=== PATIENT | male | born 1950 | race Two or more races ===

== ENCOUNTER 2016-10-25 23:29 | Inpatient (IN) | payer OTHER ==
[~2016-10-25] VITALS: Ht 172.7 cm; Wt 86.2 kg
[~2016-10-25 23:29] MED LIST: ATENOLOL PO; HYDROCHLOROTHIAZIDE PO; SIMV10TA6 PO
[2016-10-25] MEDS ORDERED: CIPR-262 PO (23:39)
[2016-10-25] MEDS ORDERED: TAMS-3 PO (23:45)
[2016-10-26] MEDS ORDERED: GENTAMICIN SULFATE INJ 80 MG in IV DEXTROSE 5% 100 ML IV ONE ×2
[2016-10-26] MEDS ORDERED: IV NORMAL SALINE 1000 ML BAG IV ONE
[2016-10-26] MEDS ORDERED: CEFTRIAXONE 1 G in IV DEXTROSE 5% 50 ML IV ONE ×2
[2016-10-26 00:22] LABS: BASOPHILS % (AUTO) 0.4 % (0.0-2.0); EOSINOPHILS % (AUTO) 0.1 % (0.0-7.0); HEMATOCRIT 39.1 % (40-50); HEMOGLOBIN 13.3 G/DL (14.0-18.0); LYMPHOCYTES # (AUTO) 0.7 K/UL (0.8-4.8); LYMPHOCYTES % (AUTO) 6.6 % (20.5-51.5); MEAN CORPUSCULAR HGB CONC 34 g/dL (32.0-37.0); MEAN CORPUSCULAR VOLUME 82.3 FL (82.0-92.0); MONOCYTES # (AUTO) 0.5 K/UL (0.1-1.30); MONOCYTES % (AUTO) 4.8 % (0.0-11.0); NEUTROPHILS # (AUTO) 8.9 K/UL (1.8-8.9); NEUTROPHILS % (AUTO) 88.1 % (38.5-71.5); PLATELET COUNT (AUTO) 157 K/UL (150-450); RED BLOOD CELL COUNT(AUTO) 4.75 MIL/UL (4.7-6.1); WHITE BLOOD COUNT (AUTO) 10.1 K/UL (4.0-11.2)
[2016-10-26] MEDS ORDERED: CEFTRIAXONE 1 G VIAL ONE (00:31)
[2016-10-26 00:40] LABS: BILIRUBIN,DIRECT 0.2 mg/dL (0.0-0.2); BILIRUBIN,TOTAL 0.7 mg/dL (0.2-1.0); CREATININE 1.3 mg/dL (0.6-1.3); TOTAL PROTEIN, SERUM 7.8 g/dL (6.4-8.2)
[2016-10-26 00:41] LABS: POTASSIUM 2.5 mmol/L (3.5-5.1)
[2016-10-26] MEDS ORDERED: POTASSIUM CHLORIDE 20 MEQ TAB.PRT.SR PO ONE (00:45)
[2016-10-26] MEDS ORDERED: GENTAMICIN SULFATE 80 MG/2 ML VIAL ONE (00:52)
[2016-10-26] MEDS ORDERED: POTASSIUM CHLORIDE 20 MEQ TAB.PRT.SR ONE (00:59)
[2016-10-26 01:04] LABS: *BILIRUBIN,URIN NEGATIVE (NEGATIVE); *BLOOD, URINE 2+ (NEGATIVE); *CLARITY,URINE CLEAR (CLEAR); *COLOR,URINE YELLOW (YELLOW); *KETONES,URINE NEGATIVE (NEGATIVE); *PROTEIN,URINE TRACE (NEGATIVE); *UROBILINOGEN,URINE 0.2 E.U./dl (NORMAL); LEUKOCYTE ESTERASE ,URINE 1+ (NEGATIVE); NITRITE, URINE NEGATIVE (NEGATIVE); UGLUCOSE NEGATIVE (NEGATIVE)
[2016-10-26 01:12] LABS: BACTERIA,URINE NONE SEEN /HPF (NONE SEEN); SQUAMOUS EPITHELIAL CELL,UR FEW /HPF (NONE SEEN)
--- NOTE | 2016-10-26 01:37 | NUR ---
DR. DYE AT BEDSIDE FOR MSE.
--- NOTE | 2016-10-26 01:47 | NUR ---
Call placed to [facility], Astrid Maki will be paged.
--- NOTE | 2016-10-26 02:25 | NUR ---
PATIENT ADMITTED IN TELE UNIT UNDER THE CARE Jimmie CARRASCO BELONGING LIST DONE. FAMILY AT BEDSIDE.
[2016-10-26 02:49] VITALS: BP 130/79
[2016-10-26] MEDS: ACETAMINOPHEN 325 MG TABLET PO PRN ×4 (03:00→21:53)
--- NOTE | 2016-10-26 03:00 | NUR ---
PATIENT RUN TEMP, COOLING MEASURE GIVEN, GIVEN TYLENOL, ASSISTED WITH TOILETING, FAMILY AT BEDSIDE. NO SOB NO CHEST PAIN NOTED, RYTHM SINUS RYTHM, CONT TO MONITOR.
[2016-10-26] MEDS ORDERED: ACETAMINOPHEN 325 MG TABLET ONE (03:29)
[2016-10-26] MEDS ORDERED: ONDANSETRON 4 MG/2 ML VIAL ONE (03:30)
[2016-10-26] MEDS ORDERED: VANCOMYCIN IV 200 ML ONE (03:43)
[2016-10-26 04:00] VITALS: BP 111/58
[2016-10-26] MEDS: VANCOMYCIN IV 1 G in PREMIXED 0 EACH IV SCH ×2 (04:00→06:00)
[2016-10-26] MEDS ORDERED: IV NS 1000 ML 1,000 ML IV PRN (06:00)
[2016-10-26] MEDS ORDERED: ONDANSETRON 4 MG/2 ML VIAL IV PRN (06:00)
[2016-10-26] MEDS ORDERED: LORAZEPAM 2 MG/1 ML VIAL IV PRN (06:00)
[2016-10-26] MEDS ORDERED: CEFTRIAXONE 1 G in IV DEXTROSE 5% 50 ML IV SCH ×2 (06:00→21:00)
--- NOTE | 2016-10-26 06:36 | NUR ---
PATIENT SLEPT FOR FEW HOURS, NO SOB NO CHEST PAIN, VANCO AND ROCEPHIN IV NOT GIVEN TOO CLOSE FROM PREVIOUS ADMINISTRATION, ROCEPHIN GIVEN AT ER, PATIENT HAS NO FURTHER EPISODE OF N/V NOTED AT THIS TIME, VOIDING WITH NAHUM COLOR URINE, IN MODERATE AMOUNT PATIENT STILL RUN TEMP. GIVEN ICE PACK FOR COOLING MEASURE BUT REFUSED TO USE IT, AWARE, CONT TO MONITOR.
--- NOTE | 2016-10-26 07:10 | NUR ---
PATIENT RECEIVED IN ROOM RESTING IN BED IN NO ACUTE DISTRESS. SR ON TELEMONITOR. RESPIRATIONS EVEN AND UNLABORED. IVF RUNNING NS AT 80 ML/HR. IV SITE INTACT AND PATENT. CALL LIGHT AT REACH.
--- NOTE | 2016-10-26 09:30 | NUR ---
BED BAD GIVEN. COOLING MEASURES PROVIDED.
[2016-10-26] MEDS ORDERED: PIPERACILLIN/TAZOBACTAM/D5W 50 ML IV SCH (10:15)
--- NOTE | 2016-10-26 10:30 | NUR ---
PATIENT SEEN BY DR BERMAN. DETAILED REPORT GIVEN.
[2016-10-26] MEDS: PANTOPRAZOLE SODIUM 40 MG TABLET.DR PO SCH (10:56)
[2016-10-26] MEDS: POTASSIUM CHLORIDE 20 MEQ in IV NS 1000 ML 1,000 ML IV PRN (10:56)
[2016-10-26] MEDS ORDERED: IOHEXOL 300MG/ML 100 ML INFUS..BTL ONE (10:57)
[2016-10-26] MEDS ORDERED: BARIUM SULFATE 450 ML ORAL.SUSP ONE (10:57)
[2016-10-26 11:01] LABS: BASOPHILS % (AUTO) 0.1 % (0.0-2.0); EOSINOPHILS % (AUTO) 0.6 % (0.0-7.0); HEMATOCRIT 35.3 % (40-50); HEMOGLOBIN 12.4 G/DL (14.0-18.0); LYMPHOCYTES # (AUTO) 0.4 K/UL (0.8-4.8); LYMPHOCYTES % (AUTO) 7.7 % (20.5-51.5); MEAN CORPUSCULAR HEMOGLOBIN 28.4 UUG (27.0-31.0); MEAN CORPUSCULAR HGB CONC 35 g/dL (32.0-37.0); MONOCYTES # (AUTO) 0.3 K/UL (0.1-1.30); MONOCYTES % (AUTO) 5.4 % (0.0-11.0); NEUTROPHILS # (AUTO) 5.1 K/UL (1.8-8.9); NEUTROPHILS % (AUTO) 86.2 % (38.5-71.5); PLATELET COUNT (AUTO) 145 K/UL (150-450); RED BLOOD CELL COUNT(AUTO) 4.35 MIL/UL (4.7-6.1); WHITE BLOOD COUNT (AUTO) 5.8 K/UL (4.0-11.2)
[2016-10-26 11:03] LABS: CREATININE 1.1 mg/dL (0.6-1.3); POTASSIUM 2.9 mmol/L (3.5-5.1)
[2016-10-26 11:09] LABS: BILIRUBIN,TOTAL 0.4 mg/dL (0.2-1.0); MAGNESIUM 1.6 mg/dL (1.8-2.4); PHOSPHOROUS 1.8 mg/dL (2.5-4.9); TOTAL PROTEIN, SERUM 6.9 g/dL (6.4-8.2)
--- NOTE | 2016-10-26 11:23 | NUR ---
Clinical pharmacy note-Vancomycin dosing per pharmacy Subjective: To start Vancomycin dosing on this 66 year old male patient for sepsis(no MD note yet) Objective: BUN 8 Scr 1.1 WBC 10.1 Temp 102.8 Ht 5'8" Wt 190lbs Assessment/Plan: Patient had Vancomycin 1 gram today at 0400. Will continue Vancomycin dosing as 1250mg IVPB every 15 hrs(first dose today at 1600, 12hrs post 1 gram dose) and draw trough by 4th dose(not ordered yet) for expected trough around 15. Will monitor renal function to adjust the dose if needed. Will follow daily.
[2016-10-26] MEDS ORDERED: ATEN25TA PO (11:27)
[2016-10-26] MEDS ORDERED: HYDR50TA3 PO (11:28)
[2016-10-26 11:42] VITALS: BP 121/57
--- NOTE | 2016-10-26 13:40 | NUR ---
PATIENT RETURNED FROM CT SCAN.
[2016-10-26] MEDS: MORPHINE SULFATE 2 MG/1 ML DISP.SYRIN IV PRN (13:49)
[2016-10-26] MEDS ORDERED: NEUTRA PHOS PACKET PO ONE (15:15)
[2016-10-26] MEDS ORDERED: MAGNESIUM SULFATE/D5W 100 ML IV SCH (15:30)
[2016-10-26 15:49] VITALS: BP 104/58
[2016-10-26] MEDS: VANCOMYCIN IV 1,250 MG in IV DEXTROSE 5% 500 ML IV SCH (16:32)
--- NOTE | 2016-10-26 18:35 | NUR ---
PATIENT SEEN BY ID. DETAILED REPORT GIVEN. TEMP 100.4. CONTINUES WITH COOLING MEASURES. IVF AND IV ANTIBIOTICS PRESCRIBED.
[2016-10-26 20:00] VITALS: BP 114/55
[2016-10-26] MEDS: PIPERACILLIN/TAZOBACTAM/D5W 50 ML IV SCH (20:37)
[2016-10-26] MEDS: SIMVASTATIN 10 MG TABLET PO SCH (20:38)
[2016-10-26] MEDS: TAMSULOSIN HCL 0.4 MG CAP.SR.24H PO SCH (20:38)
--- NOTE | 2016-10-26 20:48 | NUR ---
PATIENT HAS MULTIPLE EPISODES OF LOOSE BOWEL MOVEMENT, DR WHARTON NOTIFIED WITH ORDER.
[2016-10-26] MEDS: OXYCODONE/APAP 5-325 MG TABLET PO PRN (23:17)
[2016-10-26 23:49] VITALS: BP 107/56
[2016-10-27] MEDS: PIPERACILLIN/TAZOBACTAM/D5W 50 ML IV SCH ×4 (02:38→20:13)
[2016-10-27 04:00] VITALS: BP 103/55
[2016-10-27] MEDS: POTASSIUM CHLORIDE 20 MEQ in IV NS 1000 ML 1,000 ML IV PRN (05:40)
[2016-10-27] MEDS: PANTOPRAZOLE SODIUM 40 MG TABLET.DR PO SCH (06:05)
[2016-10-27] MEDS: VANCOMYCIN IV 1,250 MG in IV DEXTROSE 5% 500 ML IV SCH ×2 (06:33→21:16)
[2016-10-27 08:33] LABS: THYROID STIMULATING HORMONE 1.124 mIU/mL (0.358-3.740)
[2016-10-27 08:43] LABS: BASOPHILS % (AUTO) 0.3 % (0.0-2.0); EOSINOPHILS % (AUTO) 0.3 % (0.0-7.0); HEMATOCRIT 35.4 % (40-50); HEMOGLOBIN 12.2 G/DL (14.0-18.0); LYMPHOCYTES # (AUTO) 0.5 K/UL (0.8-4.8); LYMPHOCYTES % (AUTO) 12.2 % (20.5-51.5); MEAN CORPUSCULAR HEMOGLOBIN 28.4 UUG (27.0-31.0); MEAN CORPUSCULAR HGB CONC 35 g/dL (32.0-37.0); MEAN CORPUSCULAR VOLUME 82.3 FL (82.0-92.0); MONOCYTES # (AUTO) 0.4 K/UL (0.1-1.30); MONOCYTES % (AUTO) 9.3 % (0.0-11.0); NEUTROPHILS # (AUTO) 3.4 K/UL (1.8-8.9); NEUTROPHILS % (AUTO) 77.9 % (38.5-71.5); PLATELET COUNT (AUTO) 122 K/UL (150-450)
[2016-10-27 08:45] LABS: BILIRUBIN,TOTAL 0.5 mg/dL (0.2-1.0); CREATININE 1.2 mg/dL (0.6-1.3); MAGNESIUM 1.9 mg/dL (1.8-2.4); PHOSPHOROUS 2.4 mg/dL (2.5-4.9); POTASSIUM 3.3 mmol/L (3.5-5.1); TOTAL PROTEIN, SERUM 6.8 g/dL (6.4-8.2)
[2016-10-27 09:06] LABS: WHITE BLOOD COUNT (AUTO) 4.3 K/UL (4.0-11.2)
--- NOTE | 2016-10-27 12:00 | NUR ---
TEMP 102.7 BLOOD CX X2 ORDERED.
[2016-10-27 12:02] VITALS: BP 146/71
[2016-10-27] MEDS: ACETAMINOPHEN 325 MG TABLET PO PRN ×2 (12:08→20:12)
[2016-10-27 13:34] LABS: *BILIRUBIN,URIN NEGATIVE (NEGATIVE); *BLOOD, URINE 2+ (NEGATIVE); *CLARITY,URINE CLOUDY (CLEAR); *COLOR,URINE YELLOW (YELLOW); *KETONES,URINE NEGATIVE (NEGATIVE); *PROTEIN,URINE 1+ (NEGATIVE); *UROBILINOGEN,URINE 0.2 E.U./dl (NORMAL); LEUKOCYTE ESTERASE ,URINE NEGATIVE (NEGATIVE); NITRITE, URINE NEGATIVE (NEGATIVE); PH,URINE 5.5 (5.0-8.0); UGLUCOSE NEGATIVE (NEGATIVE)
[2016-10-27 13:49] LABS: BACTERIA,URINE NONE SEEN /HPF (NONE SEEN); SQUAMOUS EPITHELIAL CELL,UR FEW /HPF (NONE SEEN); URINE AMORPHOUS URATE FEW /HPF; WBC,URINE 0-3 /HPF (0-3)
[2016-10-27] MEDS ORDERED: NEUTRA PHOS PACKET PO ONE (15:30)
[2016-10-27 15:41] VITALS: BP 115/56
--- NOTE | 2016-10-27 16:09 | NUR ---
Clinical pharmacy note-Vancomycin dosing per pharmacy Subjective: To continue Vancomycin dosing on this 66 year old male patient for sepsis(no MD note yet) Objective: BUN 6 Scr 1.2 WBC 4.3 Temp 102.7 Ht 5'8" Wt 190lbs Assessment/Plan: Will continue Vancomycin dosing as 1250mg IVPB every 15 hrs and draw trough by 4th dose(ordered and due tomorrow 10/28 @1230) for expected trough around 15. Third dose due tonight at 2200. Will check trough tomorrow and adjust as needed. Will monitor renal function and dose per level if were to become unstable. Will follow daily.
--- NOTE | 2016-10-27 18:45 | NUR ---
END OF SHIFT NOTE: PATIENT IN NO ACUTE DISTRESS THROUGHOUT SHIFT. DENIED PAIN. VSS. TEMP NOW 98.8. BRP. NEEDS MET BY STAFF. CALL LIGHT AT REACH.
--- NOTE | 2016-10-27 19:30 | NUR ---
RECEIVED PATIENT LAYING COMFORTABLY IN BED. FAMILY AT BEDSIDE. NO ACUTE DISTRESS NOTED. NO C/O PAIN OR SOB. ON 2L NC. A&OX4. TELE SR. SAFETY INITIATED. CALL LIGHT WITHIN REACH. INSTRUCTED PATIENT TO USE THE CALL LIGHT WHEN IN NEED OF ASSISTANCE. VERBALIZED UNDERSTANDING. WILL CONTINUE TO MONITOR.
[2016-10-27 19:46] VITALS: BP 125/59
[2016-10-27] MEDS: TAMSULOSIN HCL 0.4 MG CAP.SR.24H PO SCH (20:12)
[2016-10-27] MEDS: SIMVASTATIN 10 MG TABLET PO SCH (20:12)
[2016-10-28 00:51] VITALS: BP 132/71
--- NOTE | 2016-10-28 02:00 | NUR ---
PATIENT C/O OF NEW ONSET HEADACHES 10/21 AND STUFFY NOSE. ADDED HUMIDIFIER. DID NOT IMPROVE STUFFY NOSE. GAVE PERCOCET. VSS. WILL CONTINUE TO MONITOR.
[2016-10-28] MEDS: OXYCODONE/APAP 5-325 MG TABLET PO PRN (02:10)
[2016-10-28] MEDS: PIPERACILLIN/TAZOBACTAM/D5W 50 ML IV SCH ×4 (02:11→20:36)
--- NOTE | 2016-10-28 02:18 | NUR ---
PATIENT C/O HEADACHE THAT IS KEEPING HIM UP. 0000 VSS. TELE SR AT 70. GAVE MEDS. WILL CONTINUE TO MONITOR.
--- NOTE | 2016-10-28 02:30 | NUR ---
HEADACHE AND STUFFY NOSE DID NOT IMPROVE. GAVE MORPHINE 2 MG IVP. VSS. WILL CONTINUE TO MONITOR.
[2016-10-28] MEDS: MORPHINE SULFATE 2 MG/1 ML DISP.SYRIN IV PRN (03:32)
--- NOTE | 2016-10-28 03:33 | NUR ---
PATIENT STATED SLIGHT RELIEF AFTER THE MORPHINE. VSS. WILL CONTINUE TO MONITOR.
[2016-10-28 04:00] VITALS: BP 126/67
[2016-10-28] MEDS: PANTOPRAZOLE SODIUM 40 MG TABLET.DR PO SCH (06:18)
--- NOTE | 2016-10-28 06:23 | NUR ---
REFUSED AM MEDS. REFUSED IV FLUIDS FOR NOW.
--- NOTE | 2016-10-28 06:38 | NUR ---
PATIENT SLEPT INTERMITTENTLY T/O SHIFT. PATIENT C/O HEADACHES AND STUFFY NOSE AROUND 0100. GAVE MEDS, STATED RELIEF. PATIENT DID NOT WANT TO USE O2 NC, HE THINKS IT MIGHT HAVE CONTRIBUTED TO THE NASAL CONGESTION. CHECKED O2, PATIENT IS SATING >95%. TEMPERATURE WAS MAINTAINED AT < 99.0. SAFETY AND COMFORT MEASURES MAINTAIN T/O SHIFT. ALL MEDS GIVEN ORDERED. TELE SR. URINE OUTPUT REMAINS > 30 CC/HR. USES A URINAL. WILL CONTINUE TO MONITOR.
[2016-10-28 06:55] LABS: CREATININE 1.1 mg/dL (0.6-1.3); PHOSPHOROUS 3.1 mg/dL (2.5-4.9)
[2016-10-28 07:05] LABS: POTASSIUM 2.7 mmol/L (3.5-5.1)
[2016-10-28 07:24] LABS: BASOPHILS % (AUTO) 0.4 % (0.0-2.0); EOSINOPHILS # (AUTO) 0.1 K/uL (0.0-0.7); EOSINOPHILS % (AUTO) 3.7 % (0.0-7.0); HEMOGLOBIN 11.2 G/DL (14.0-18.0); LYMPHOCYTES # (AUTO) 1.1 K/UL (0.8-4.8); LYMPHOCYTES % (AUTO) 32.2 % (20.5-51.5); MEAN CORPUSCULAR HEMOGLOBIN 28.7 UUG (27.0-31.0); MEAN CORPUSCULAR HGB CONC 35 g/dL (32.0-37.0); MONOCYTES # (AUTO) 0.4 K/UL (0.1-1.30); MONOCYTES % (AUTO) 12.7 % (0.0-11.0); NEUTROPHILS # (AUTO) 1.8 K/UL (1.8-8.9); PLATELET COUNT (AUTO) 138 K/UL (150-450); RED BLOOD CELL COUNT(AUTO) 3.91 MIL/UL (4.7-6.1); WHITE BLOOD COUNT (AUTO) 3.4 K/UL (4.0-11.2)
[2016-10-28] MEDS ORDERED: POTASSIUM CHLORIDE 20 MEQ TAB.PRT.SR PO ONE (07:30)
[2016-10-28] MEDS: ACETAMINOPHEN 325 MG TABLET PO PRN (07:56)
--- NOTE | 2016-10-28 07:58 | NUR ---
PATIENT RECEIVED IN ROOM ALERT AWAKE IN NO ACUTE DISTRESS. C/O GOLD, RATED 7/10. TYLENOL GIVEN PRESCRIBED. K LEVEL REPORTED TO DR. BERMAN. SEE NEW ORDERS.
--- NOTE | 2016-10-28 09:00 | NUR ---
PATIENT STATES GOLD IS GETTING BETTER 05/21.
[2016-10-28 12:00] VITALS: BP 124/82
[2016-10-28] MEDS: POTASSIUM CHLORIDE 20 MEQ in IV NS 1000 ML 1,000 ML IV PRN (12:39)
--- NOTE | 2016-10-28 13:40 | NUR ---
PATIENT SEEN BY DR. TORRES. DETAILED REPORT GIVEN SEE NEW ORDERS.
--- NOTE | 2016-10-28 13:42 | NUR ---
Clinical pharmacy note-Vancomycin dosing per pharmacy Subjective: To continue Vancomycin dosing on this 66 year old male patient for sepsis due to cystitis or prostatitis Objective: BUN 6 Scr 1.1 WBC 3.4 Temp 98.6 Vanco trough level : 8.7 Ht 5'8" Wt 190lbs Assessment/Plan: Since vanco trough level is sub-therapeutic, will change dose of Vancomycin from 1250mg IVPB every 15 hrs to 1250mg IVPB q12h for predicted vanco trough level of 15 mcg/ml at steady state. 1st dose of this regime is due today at 1430. Plan to draw vanco trough level before 4th dose of current regimen (not yet ordered). Will monitor renal function and dose per level if were to become unstable. Will follow daily.
[2016-10-28] MEDS: VANCOMYCIN IV 1,250 MG in IV DEXTROSE 5% 500 ML IV SCH (14:53)
[2016-10-28 16:00] VITALS: BP 133/74
--- NOTE | 2016-10-28 19:35 | NUR ---
PT RECEIVED IN BED, AWAKE. AT BEDSIDE. A/OX4. ABLE TO MAKE NEEDS KNOWN. V/S STABLE. BP ELEVATED AT 152/84. IN NO ACUTE DISTRESS. NO C/O PAIN AT THIS TIME. IVF INFUSING. SAFETY MEASURES IMPLEMENTED. CALL LIGHT WITHIN REACH.
[2016-10-28 20:00] VITALS: BP 152/84
[2016-10-28] MEDS: SIMVASTATIN 10 MG TABLET PO SCH (20:36)
[2016-10-28] MEDS: TAMSULOSIN HCL 0.4 MG CAP.SR.24H PO SCH (20:37)
[2016-10-28] MEDS: ATENOLOL 25 MG TABLET PO SCH (22:03)
[2016-10-28] MEDS ORDERED: ATENOLOL 25 MG TABLET ONE (22:14)
[2016-10-29] MEDS: PIPERACILLIN/TAZOBACTAM/D5W 50 ML IV SCH ×4 (01:08→19:52)
[2016-10-29] MEDS: VANCOMYCIN IV 1,250 MG in IV DEXTROSE 5% 500 ML IV SCH ×2 (01:51→14:30)
[2016-10-29 05:33] VITALS: BP 137/68
--- NOTE | 2016-10-29 05:36 | NUR ---
END OF SHIFT NOTES. PT SLEPT WELL THROUGHOUT SHIFT. IN STABLE CONDITION. IV ABX INFUSED. IV FLUIDS INFUSING. BP MAINTAINED WNL. ALL NEEDS ATTENDED. SAFETY MAINTAINED. CALL LIGHT WITHIN REACH.
[2016-10-29] MEDS: PANTOPRAZOLE SODIUM 40 MG TABLET.DR PO SCH (06:32)
[2016-10-29 06:42] LABS: MAGNESIUM 1.7 mg/dL (1.8-2.4); POTASSIUM 3.2 mmol/L (3.5-5.1)
[2016-10-29 08:07] LABS: WHITE BLOOD COUNT (AUTO) 4.8 K/UL (4.0-11.2)
[2016-10-29 08:08] LABS: BASOPHILS % (AUTO) 0.3 % (0.0-2.0); EOSINOPHILS % (AUTO) 3.8 % (0.0-7.0); HEMATOCRIT 33.4 % (40-50); HEMOGLOBIN 11.7 G/DL (14.0-18.0); LYMPHOCYTES % (AUTO) 27.9 % (20.5-51.5); MEAN CORPUSCULAR HEMOGLOBIN 28.8 UUG (27.0-31.0); MEAN CORPUSCULAR HGB CONC 35 g/dL (32.0-37.0); MEAN CORPUSCULAR VOLUME 82.2 FL (82.0-92.0); MONOCYTES % (AUTO) 9.4 % (0.0-11.0); NEUTROPHILS % (AUTO) 58.6 % (38.5-71.5); PLATELET COUNT (AUTO) 157 K/UL (150-450); RED BLOOD CELL COUNT(AUTO) 4.07 MIL/UL (4.7-6.1)
[2016-10-29] MEDS: ATENOLOL 25 MG TABLET PO SCH (09:30)
--- NOTE | 2016-10-29 10:00 | NUR ---
IV INFILTRATED--UNABLE TO RESTART [MULTIPLE ATTEMPTS]. DR. BERMAN NOTIFIED. 1200--AWAITING DR. TORRES FOR ANTIBIOTIC ORDERS. DR. TORRES CALLED BY RN AND DR. BERMAN. AWAITING CALL BACK. 1400--DR. TORRES CALLED AGAIN AWAITING CALL BACK. 1500--DR. BERMAN NOTIFIED UNABLE TO REACH DR. TORRES. DR. BERMAN IN TO SEE PT. AND REVIEW HOME INSTRUCTIONS.STILL WAITING DR. TORRES. 1600--STILL AWAITING DR. TORRES. DR. BERMAN NOTIFIED AGAIN. DR. BERMAN WILL CALL DR. TORRES AGAIN. 1630-- DR. TORRES RETURNED CALL--STATES HIS NURSE PRACTIONER WILL BE IN SHORTLY TO REVIEW ALL HOME INSTRUCTIONS.
[2016-10-29 11:42] VITALS: BP 139/65
[2016-10-29] MEDS ORDERED: POTASSIUM CHLORIDE 20 MEQ TAB.PRT.SR PO ONE (12:15)
[2016-10-29] MEDS ORDERED: MAGNESIUM OXIDE 400 MG TABLET PO ONE (12:15)
--- NOTE | 2016-10-29 14:00 | NUR ---
UNABLE TO RESTART IV [MULTIPLE ATTEMPTS] DR. BERMAN NOTIFIED. AWAITING INSTRUCTION FROM DR. TORRES.
[2016-10-29 15:58] VITALS: BP 133/61
--- NOTE | 2016-10-29 16:09 | NUR ---
Clinical pharmacy note-Vancomycin dosing per pharmacy Subjective: To continue Vancomycin dosing on this 66 year old male patient for sepsis due to cystitis or prostatitis Objective: BUN 6 Scr 1.0 WBC 4.8 Temp 98.6 Ht 5'8" Wt 190lbs Assessment/Plan: Since renal function is stable, will continue Vancomycin 1250mg IVPB q12h for predicted vanco trough level of 15 mcg/ml at steady state. Third dose of this regime was given today at 0200. Plan to draw vanco trough level before 4th dose of current regimen (ordered for tomorrow at 0200). Will monitor renal function and dose per level if were to become unstable. Will follow daily.
[2016-10-29] MEDS ORDERED: PHENAZOPYRIDINE HCL 100 MG TABLET PO SCH (18:30)
--- NOTE | 2016-10-29 19:10 | NUR ---
Received report from IRIS Le. Patient awake, alert, sitting at the edge of bed, family at bedside. Awaiting CXR result for the Mid Line placement. Denies any apin/discomforts at this time.
[2016-10-29] MEDS ORDERED: SIMV10TA6 PO (19:17)
[2016-10-29] MEDS ORDERED: HYDR25TA4 PO (19:17)
[2016-10-29] MEDS ORDERED: TAMS-3 PO (19:17)
[2016-10-29 20:15] VITALS: BP 111/57
--- NOTE | 2016-10-29 21:00 | NUR ---
Zosyn IVPB ATB completed, flushed with NS and clamped.
--- NOTE | 2016-10-29 21:17 | NUR ---
Discharged patient to home with via wheelchair. Denies any pain/discomforts. VS stable.
== END 2016-10-29 21:25 | disposition home or self-care (01) | DRG 872 ==
LOC: ER 23:35 → TELE 10-26 01:00 → MED 10-28 15:00
PROVIDERS: ADMIT Internal Medicine; ATTEND Internal Medicine
PROC: B548ZZA Ultrasonography of Superior Vena Cava, Guidance (ICD-10-PCS; principal; 2016-10-29)
PROC: 02HV33Z Insertion of Infusion Device into Superior Vena Cava, Percutaneous Approach (ICD-10-PCS; principal; 2016-10-29)
DX: A41.9 Sepsis, unspecified organism (principal); D69.6 Thrombocytopenia, unspecified; E44.0 Moderate protein-calorie malnutrition; E83.42 Hypomagnesemia; E87.1 Hypo-osmolality and hyponatremia; E83.39 Other disorders of phosphorus metabolism; N30.90 Cystitis, unspecified without hematuria; E66.9 Obesity, unspecified; E78.5 Hyperlipidemia, unspecified; I10 Essential (primary) hypertension; N41.9 Inflammatory disease of prostate, unspecified; D50.9 Iron deficiency anemia, unspecified; E87.6 Hypokalemia; Z68.28 Body mass index [BMI] 28.0-28.9, adult; K57.90 Diverticulosis of intestine, part unspecified, without perforation or abscess without bleeding; R16.2 Hepatomegaly with splenomegaly, not elsewhere classified; Z96.651 Presence of right artificial knee joint; B96.89 Other specified bacterial agents as the cause of diseases classified elsewhere; N40.1 Benign prostatic hyperplasia with lower urinary tract symptoms; Z98.890 Other specified postprocedural states; E11.9 Type 2 diabetes mellitus without complications
CPT/HCPCS: 36415; 36569; 70030-TC; 71010; 83605; 83735; 84100; 84443; 85025; 85730; 87040; 87077; 87086; 93005; A4217; A4663; C1751; J0696; J1580; J2060; J2270; J2405; J2543; J3370; J3475; J3480; J7030; J7060; Q9951; Q9967